=== PATIENT | female | born 1990 | race African-American/Black ===

== ENCOUNTER 2019-03-12 08:18 | Day surgery (SDC) | payer OTHER ==
[2019-03-09 16:50] VITALS: BMI 40.7
[2019-03-12] MEDS ORDERED: MIDAZOLAM HCL 2 MG/2 ML SINGLE DOSE VIAL ONE (09:57)
[2019-03-12] MEDS ORDERED: ONDANSETRON 4 MG/2 ML VIAL IVPUSH PRN (10:05)
[2019-03-12] MEDS ORDERED: PROPOFOL 20 ML ONE (10:09)
[2019-03-12] MEDS ORDERED: LACTATED RINGERS SOLUTION 1,000 ML IV SCH (10:15)
[2019-03-12] MEDS ORDERED: IOHEXOL 300 MG/ML INFUS..BTL IV ONE ×2 (10:24)
[2019-03-12] MEDS ORDERED: ONDANSETRON 4 MG/2 ML VIAL ONE (12:00)
--- NOTE | 2019-03-12 12:57 | OP ---
Operative Note - Note: Operative Date: 03/12/19 Pre-Operative Diagnosis: Right ureteral stricture Operation: cystoscopy/right retrograde pyelogram/right ureteral balloon dilation /right ureteroscopy/right ureteral stent exchange Findings: moderately dense right ureteral stricture Post-Operative Diagnosis: Same as Pre-op Surgeon: Lico Lira Anesthesia: General Specimens Removed: right ureteral stent Drains & Tubes with Location: 8fr/24 cm right ureteral stent
[2019-03-12 15:19] VITALS: BP 105/61; PULSE 70; TEMP 97.9
--- NOTE | 2019-03-12 22:39 | OP ---
DATE OF OPERATION: 03/12/2019 PREOPERATIVE DIAGNOSIS: Right ureteral stricture. POSTOPERATIVE DIAGNOSIS: Right ureteral stricture. PROCEDURE: Cystoscopy, right retrograde pyelogram, right ureteral balloon dilation, right ureteroscopy, right ureteral stent exchange. ATTENDING: Concetta Castillo MD ANESTHESIA: Fractional. DESCRIPTION OF OPERATION: The patient was brought in the operating room, placed in supine position on the operating room table. Patient was given anesthesia and preoperative antibiotics. At this point, the patient was placed in the dorsal lithotomy position and prepped and draped in the usual sterile manner. The patient underwent a cystoscopy which showed no evidence of stones or neoplasm within the bladder. A right ureteral stent was seen and was removed under cystoscopic visualization using grasping forceps. The patient then had a wire placed proximally into the right kidney. This was done under fluoroscopic visualization. At this point, a retrograde pyelogram showed a [id number] distal right ureteral stricture. Balloon dilation was then performed with excellent opening of the strictured area. Once this was accomplished, ureteroscopy was performed, and there was still residual stricture noted. No evidence of neoplasm or stone was noted. A second dilation was performed utilizing the balloon dilator. The balloon was left in place for a period of 5 minutes. With balloon deflated and removed, ureteroscopy was performed, and there was significant improvement in the strictured area. It was decided to leave the patient with an 8-[place] 24-cm stent. This was placed utilizing the Seldinger technique. No complications were noted. Patient tolerated the procedure very well. CONCETTA CASTILLO M.D. [id number]
--- NOTE | 2019-03-13 17:58 | PATH ---
Surgical Pathology Report Patient Name: MARINA ROBERSON Med. Rec. #: [id number] /Age/Gender: 1990 (Age: 29) / F Account: [id number] Location: [facility] Taken: 03/12/2019 Received: 03/12/2019 Reported: 03/13/2019 Physicians: Lico Lira Specimen(s) Received URETERAL STENT Clinical History Right ureteral stricture Final Diagnosis URETERAL STENT, OLD, EXCHANGE: URETERAL STENT. MACROSCOPIC DIAGNOSIS. Electronically Signed Renea Richardson M.D. Gross Description Received fresh "old ureteral stent" is a light blue-hernandez stent consistent with a ureteral stent, coiled in both ends, which measures 30 cm in length and 0.1 cm diameter. No soft tissue present, for gross examination only. MLSZ/03/12/2019 [place]/03/12/2019
== END 2019-03-12 15:34 | disposition home or self-care (01) ==
LOC: JASU-SURG 08:18
PROVIDERS: ATTEND Urology
PROC: 0TP98DZ Removal of Intraluminal Device from Ureter, Via Natural or Artificial Opening Endoscopic (ICD-10-PCS; 2019-03-12)
PROC: BT1DYZZ Fluoroscopy of Right Kidney, Ureter and Bladder using Other Contrast (ICD-10-PCS; 2019-03-12)
PROC: 0T768DZ Dilation of Right Ureter with Intraluminal Device, Via Natural or Artificial Opening Endoscopic (ICD-10-PCS; principal; 2019-03-12 10:00)
DX: N13.5 Crossing vessel and stricture of ureter without hydronephrosis (principal)
CPT/HCPCS: 76000-TC-FY; 84703; 88300-TC; 94760

== ENCOUNTER 2019-05-21 08:54 | Day surgery (SDC) | payer OTHER ==
[2019-05-18 17:14] VITALS: BMI 41.6
[2019-05-21] MEDS ORDERED: PROMETHAZINE HCL 25 MG/1 ML VIAL IVPB PRN (13:40)
[2019-05-21] MEDS ORDERED: oxyCODONE HCL 5 MG TABLET PO PRN (13:40)
[2019-05-21] MEDS ORDERED: ONDANSETRON 4 MG/2 ML VIAL IVPUSH PRN (13:40)
[2019-05-21] MEDS ORDERED: LACTATED RINGERS SOLUTION 1,000 ML IV SCH (13:45)
[2019-05-21] MEDS ORDERED: MIDAZOLAM HCL 2 MG/2 ML SINGLE DOSE VIAL ONE ×2 (13:58)
[2019-05-21] MEDS ORDERED: PROPOFOL 20 ML ONE (14:01)
--- NOTE | 2019-05-21 14:34 | OP ---
Operative Note - Note: Operative Date: 05/21/19 Pre-Operative Diagnosis: recurrent right ureteral stricture Operation: cystoscopy/right retrograde pyelogram/right ureteroscopy/right ureteral stent exchange Findings: distal recurrent right ureteral stricture Post-Operative Diagnosis: Same as Pre-op Surgeon: Lico Lira Anesthesia: General Specimens Removed: right ureteral stent Drains & Tubes with Location: 11/27 right ureteral stent Operative Report Dictated: Yes
[2019-05-21 16:04] VITALS: TEMP 97.4
[2019-05-21] MEDS ORDERED: oxyCODONE HCL 5 MG TABLET ONE (16:08)
[2019-05-21 17:20] VITALS: BP 106/60; PULSE 98
--- NOTE | 2019-05-21 18:50 | OP ---
DATE OF OPERATION: 05/21/2019 PREOPERATIVE DIAGNOSIS: Recurrent urethral stricture. POSTOPERATIVE DIAGNOSIS: Recurrent urethral stricture. PROCEDURE: Cystoscopy, right retrograde pyelogram, right ureteroscopy, and right stent exchange. SURGEON: Concetta Castillo MD ANESTHESIA: General. DESCRIPTION OF PROCEDURE: Patient was brought in the operating room, placed in a supine position on the operating room table. Anesthesia and preoperative antibiotics were administered. The patient was then placed in dorsal lithotomy position and prepped and draped in the usual sterile manner. The patient has a recurrent distal urethral stricture. The stricture occurs at the level of the pelvic vessels. The patient has had multiple balloon dilations with recurrence of the stricture. The patient is here to evaluate the urethral stricture present. Cystoscopy was performed, and the right ureteral stent was noted. Right ureteral stent was removed. At this point, attempts at passing a wire through the stent were unsuccessful. Ureteroscopy was performed and a retrograde pyelogram performed through the ureteroscope. A recurrent urethral stricture was noted. The ureteroscope was utilized, and the stricture was dilated. At this point, the wire was passed proximally. The severity of the stricture was less than had been seen earlier. In addition, the length of the stricture was shorter. There was no evidence of neoplasm of this ureter or stones within the ureter. The patient tolerated the procedure very well. No complications were noted. The patient had a 6-[place] 24-cm stent placed over the wire utilizing Seldinger technique. DISPOSITION: Patient to recovery room. CONCETTA CASTILLO M.D. [id number]
--- NOTE | 2019-05-23 17:31 | PATH ---
Surgical Pathology Report Patient Name: MARINA ROBERSON Med. Rec. #: [id number] /Age/Gender: 1990 (Age: 29) / F Account: [id number] Location: [facility] Taken: 05/21/2019 Received: 05/22/2019 Reported: 05/23/2019 Physicians: Lico Lira Specimen(s) Received URETERAL STENT, RIGHT Clinical History Hydronephrosis with ureteral stricture Final Diagnosis URETERAL STENT, RIGHT, REMOVAL: URETERAL STENT. MACROSCOPIC DIAGNOSIS. Electronically Signed Renea Richardson M.D. Gross Description Received fresh labeled "right ureteral stent," is a 40 cm in length blue-green, coiled portion of tubing, consistent with a ureteral stent. No soft tissue is present. No sections are submitted, gross only. 05/22/2019 saudi05/22/2019
== END 2019-05-21 17:10 | disposition home or self-care (01) ==
LOC: JASU-SURG 08:54
PROVIDERS: ATTEND Urology
PROC: 0T768DZ Dilation of Right Ureter with Intraluminal Device, Via Natural or Artificial Opening Endoscopic (ICD-10-PCS; principal; 2019-05-21 11:00)
PROC: BT0BYZZ Plain Radiography of Bladder and Urethra using Other Contrast (ICD-10-PCS; 2019-05-21 11:00)
DX: N35.82 Other urethral stricture, female (principal)
CPT/HCPCS: 76000-TC-FY; 84703; 88300-TC; 94760

== ENCOUNTER 2020-10-16 10:24 | Observation (INO) | payer OTHER ==
[2020-10-16] MEDS ORDERED: ONDANSETRON 4 MG/2 ML VIAL IVPUSH ONE (10:49)
[2020-10-16] MEDS ORDERED: ACETAMINOPHEN 1000 MG/100 ML BAG IVPB ONE (10:49)
[2020-10-16] MEDS ORDERED: ACETAMINOPHEN INJECTION 100 ML IVPB ONE (10:56)
[2020-10-16] MEDS ORDERED: ONDANSETRON 4 MG/2 ML VIAL ONE (10:56)
[2020-10-16 11:26] LABS: BASO % 0.5 % (0-2.0); EOS % 0.1 % (0-4.5); HEMATOCRIT 34.9 % (32.4-45.2); HEMOGLOBIN 11.8 GM/dL (10.7-15.3); LYMPH % 7.2 % (8-40); MCH 30.8 pg (25.7-33.7); MCHC 33.8 g/dl (32.0-36.0); MEAN CELL VOLUME 91.1 fl (80-96); MEAN PLT VOLUME 10.1 fl (7.5-11.1); MONO % 3.5 % (3.8-10.2); NEUT % 88.7 % (42.8-82.8); PLATELET COUNT 207 K/MM3 (134-434); RBC 3.83 M/mm3 (3.60-5.2); RDW 14.4 % (11.6-15.6); WHITE BLOOD COUNT 14.2 K/mm3 (4.0-10.0)
[2020-10-16 12:04] LABS: CALCIUM 8.6 mg/dL (8.5-10.1)
[2020-10-16 12:05] LABS: ALBUMIN 3.2 g/dl (3.4-5.0); BLOOD UREA NITROGEN 8.8 mg/dL (7-18)
[2020-10-16 12:08] LABS: CREATININE 0.7 mg/dL (0.55-1.3)
[2020-10-16 12:09] LABS: BILIRUBIN,TOTAL 0.3 mg/dL (0.2-1); TOT PROT 6.4 g/dl (6.4-8.2)
[2020-10-16 13:57] LABS: EPI CELLS 24 /uL (0-25.1); HYALINE CASTS 10 /uL (0-3.1); URINE APPEARANCE CLOUDY; URINE BACTERIA >9,000 /uL (0-1359); URINE BILIRUBIN NEGATIVE (NEGATIVE); URINE COLOR YELLOW; URINE GLUCOSE (UA) NEGATIVE (NEGATIVE); URINE KETONE 4+ (NEGATIVE); URINE LEUK ESTERASE NEGATIVE (NEGATIVE); URINE NITRITE NEGATIVE (NEGATIVE); URINE PROTEIN 1+ (NEGATIVE); URINE RBC 239 /uL (0-23.9); URINE UROBILINOGEN 0.2 mg/dL (0.2-1.0)
[2020-10-16] MEDS ORDERED: SODIUM CHLORIDE 0.9% 500 ML INFUS.BAG IV ONE (14:01)
[2020-10-16] MEDS ORDERED: CEFTRIAXONE 1,000 MG in DEXTROSE 5%-WATER - 50 ML IVPB ONE (14:03)
[2020-10-16] MEDS ORDERED: CEFTRIAXONE 1 GM/50 ML BAG ONE (14:07)
[2020-10-16 15:43] LABS: URINE WBC 218.3 /uL (0-25.8)
[2020-10-16] MEDS ORDERED: PHENAZOPYRIDINE HCL 100 MG TABLET (FP) PO ONE (17:15)
[2020-10-16] MEDS: ELECTROLYTE-148 SOLN 1,000 ML IV SCH (19:30)
[2020-10-16] MEDS ORDERED: CITRIC ACID/SODIUM CITRATE 30 ML UNIT-DOSE CUP PO ONE (20:02)
[2020-10-16] MEDS ORDERED: PROMETHAZINE HCL 25 MG/1 ML VIAL IVPUSH PRN (20:02)
[2020-10-16] MEDS ORDERED: ACETAMINOPHEN 1000 MG/100 ML BAG IVPB PRN (20:16)
[2020-10-16] MEDS ORDERED: MEPERIDINE HCL 50 MG/ML VIAL IM PRN (20:17)
[2020-10-16 21:30] VITALS: BMI 41.6
[2020-10-16 22:09] LABS: BASO % 0.5 % (0-2.0); EOS % 0.1 % (0-4.5); HEMATOCRIT 33.2 % (32.4-45.2); HEMOGLOBIN 11.1 GM/dL (10.7-15.3); LYMPH % 9.2 % (8-40); MCH 30.5 pg (25.7-33.7); MCHC 33.4 g/dl (32.0-36.0); MEAN CELL VOLUME 91.4 fl (80-96); MEAN PLT VOLUME 9.9 fl (7.5-11.1); NEUT % 85.2 % (42.8-82.8); PLATELET COUNT 199 K/MM3 (134-434); RBC 3.63 M/mm3 (3.60-5.2); RDW 14.2 % (11.6-15.6)
[2020-10-16 22:14] LABS: INR 0.98 (0.83-1.09); PROTHROMBIN TIME (PATIENT) 11.9 SEC (9.7-13.0)
[2020-10-16 22:17] LABS: ACTIVATED PTT 26.8 SECONDS (25.2-36.5)
[2020-10-16 22:44] LABS: BLOOD UREA NITROGEN 8.1 mg/dL (7-18); CALCIUM 8.4 mg/dL (8.5-10.1)
[2020-10-16 22:48] LABS: CREATININE 0.7 mg/dL (0.55-1.3)
[2020-10-17] MEDS: ELECTROLYTE-148 SOLN 1,000 ML IV SCH (02:28)
[2020-10-17] MEDS ORDERED: cefTRIAXone SODIUM 1 GM VIAL ONE (09:50)
[2020-10-17] MEDS ORDERED: DEXTROSE 5%-WATER - 50 ML IVPB ONE (09:50)
[2020-10-17] MEDS: CEFTRIAXONE 1 GM in DEXTROSE 5%-WATER - 50 ML IVPB SCH (09:52)
[2020-10-18] MEDS ORDERED: cefTRIAXone SODIUM 1 GM VIAL ONE (10:16)
[2020-10-18] MEDS ORDERED: DEXTROSE 5%-WATER - 50 ML IVPB ONE (10:16)
[2020-10-18] MEDS: CEFTRIAXONE 1 GM in DEXTROSE 5%-WATER - 50 ML IVPB SCH (10:17)
[2020-10-18 14:59] VITALS: BP 92/52; PULSE 90; TEMP 98
== END 2020-10-18 14:35 | disposition home or self-care (01) ==
LOC: JER 10:24 → JLDR 19:40 → J3W 22:00
PROVIDERS: ADMIT Obstetrics & Gynecology; ATTEND Obstetrics & Gynecology
PROC: 3E033NZ Introduction of Analgesics, Hypnotics, Sedatives into Peripheral Vein, Percutaneous Approach (ICD-10-PCS; principal; 2020-10-16)
PROC: 3E03329 Introduction of Other Anti-infective into Peripheral Vein, Percutaneous Approach (ICD-10-PCS; 2020-10-16)
PROC: 3E0337Z Introduction of Electrolytic and Water Balance Substance into Peripheral Vein, Percutaneous Approach (ICD-10-PCS; 2020-10-16)
PROC: 3E033GC Introduction of Other Therapeutic Substance into Peripheral Vein, Percutaneous Approach (ICD-10-PCS; 2020-10-16)
DX: O23.00 Infections of kidney in pregnancy, unspecified trimester (principal); N20.0 Calculus of kidney; R11.2 Nausea with vomiting, unspecified; Z3A.20 20 weeks gestation of pregnancy
CPT/HCPCS: 36415; 76775-TC; 80048; 80053; 81003; 85025; 85610; 85730; 86780; 86850; 86900; 86901; 87086; 96361; 96365; 96375; 99285-25; C9803; G0378; J0131; U0003; U0005

== ENCOUNTER 2021-03-06 05:25 | Observation (INO) | payer OTHER ==
[2021-03-06] MEDS: ELECTROLYTE-148 SOLN 1,000 ML IV SCH ×2 (06:45→13:30)
[2021-03-06] MEDS ORDERED: BUTORPHANOL TARTRATE 1 MG/ML VIAL IVPB PRN ×2 (07:10)
[2021-03-06 07:32] LABS: INR 0.9 (0.83-1.09)
[2021-03-06 07:33] LABS: BASO % 0.5 % (0-2.0); EOS % 2.7 % (0-4.5); HEMATOCRIT 34.9 % (32.4-45.2); HEMOGLOBIN 11.9 GM/dL (10.7-15.3); LYMPH % 20.2 % (8-40); MCH 31.3 pg (25.7-33.7); MCHC 34.1 g/dl (32.0-36.0); MEAN CELL VOLUME 91.9 fl (80-96); MEAN PLT VOLUME 10.9 fl (7.5-11.1); MONO % 4.9 % (3.8-10.2); NEUT % 71.7 % (42.8-82.8); PLATELET COUNT 170 10^3/uL (134-434); RDW 13.7 % (11.6-15.6); WHITE BLOOD COUNT 9.9 K/mm3 (4.0-10.0)
[2021-03-06 07:34] LABS: ACTIVATED PTT 27.4 SECONDS (25.2-36.5)
[2021-03-06 07:40] LABS: CALCIUM 8.5 mg/dL (8.5-10.1)
[2021-03-06 07:44] LABS: CREATININE 0.6 mg/dL (0.55-1.3)
[2021-03-06 07:54] VITALS: BMI 44.8
[2021-03-06 14:11] VITALS: BP 119/81; PULSE 91; TEMP 98.7
== END 2021-03-06 14:40 | disposition home or self-care (01) ==
LOC: JDEL 05:25 → JLDR 06:20 → UNDOADMOB 06:20 → INTOOBSV 06:20 → JLDR 14:15
PROVIDERS: ADMIT Obstetrics & Gynecology; ATTEND Obstetrics & Gynecology
PROC: 3E033GC Introduction of Other Therapeutic Substance into Peripheral Vein, Percutaneous Approach (ICD-10-PCS; principal; 2021-03-06)
DX: O48.0 Post-term pregnancy (principal); Z3A.40 40 weeks gestation of pregnancy
CPT/HCPCS: 36415; 59025; 80048; 85025; 85610; 85730; 86780; 86850; 86900; 86901; 96365; C9803; G0378; U0003; U0005

== ENCOUNTER 2021-03-07 02:26 | Inpatient (IN) | payer OTHER ==
[2021-03-07] MEDS ORDERED: ELECTROLYTE-148 SOLN 1,000 ML IV SCH (03:20)
[2021-03-07 03:46] VITALS: BMI 44.8
[2021-03-07] MEDS ORDERED: PCA PUMP NR ONE ×5 (03:51→13:50)
[2021-03-07] MEDS ORDERED: FENTANYL/BUPIVACAINE/NS/PF - PCEA - 50 ML DISP.SYRIN EP ONE ×3 (03:51→12:53)
[2021-03-07] MEDS: FENTANYL/BUPIVACAINE/NS/PF - PCEA - 50 ML DISP.SYRIN EP SCH ×3 (04:30→13:00)
[2021-03-07] MEDS ORDERED: NALOXONE HCL 0.4 MG/ML VIAL IVPUSH PRN (05:08)
[2021-03-07] MEDS: ELECTROLYTE-148 SOLN 1,000 ML IV SCH ×2 (09:09→16:34)
[2021-03-07] MEDS ORDERED: BUPIVACAINE HCL/PF 0.25% (2.5MG/ML) 10 ML VIAL ONE (11:15)
[2021-03-07] MEDS ORDERED: OXYTOCIN 30 UNITS in 0.9% NS 30 UNIT/500 ML INFUS.BAG IVPB SCH (11:15)
[2021-03-07] MEDS ORDERED: OXYTOCIN 30 UNITS in 0.9% NS 30 UNIT/500 ML INFUS.BAG IVPB ONE (12:09)
[2021-03-07] MEDS ORDERED: BENZOCAINE 28 GM HEMORRHOIDAL OINTMENT TP PRN (15:02)
[2021-03-07] MEDS ORDERED: WITCH HAZEL 50% (TUCKS) 40 PAD/JAR PAD TP PRN (15:02)
[2021-03-07] MEDS ORDERED: BISACODYL 10 MG SUPP.RECT RC PRN (15:02)
[2021-03-07] MEDS ORDERED: BENZOCAINE 20% 57 GM BOTTLE TP PRN (15:02)
[2021-03-07] MEDS ORDERED: METHYLERGONOVINE MALEATE 0.2 MG/1 ML AMP IM PRN (15:02)
[2021-03-07] MEDS ORDERED: OXYTOCIN 20 UNITS in 0.9% NS 20 UNIT/1,000 ML INFUS.BAG IV SCH (15:15)
[2021-03-07] MEDS ORDERED: LIDOCAINE HCL/PF 2% SDV 5ML VIAL ONE (17:34)
[2021-03-07] MEDS ORDERED: PROPOFOL 20 ML ONE ×2 (17:34)
[2021-03-07] MEDS ORDERED: LIDOCAINE HCL/EPINEPHRINE/PF 10 ML VIAL ONE (17:35)
[2021-03-07] MEDS ORDERED: morphine SULFATE (PF) 1 MG/2 ML SYRINGE ONE ×2 (17:36)
[2021-03-07] MEDS ORDERED: KETOROLAC TROMETHAMINE 30 MG/1 ML VIAL ONE (18:10)
[2021-03-07] MEDS ORDERED: ceFAZolin SODIUM 1 GM VIAL ONE (18:10)
[2021-03-07] MEDS ORDERED: ONDANSETRON 4 MG/2 ML VIAL ONE (18:10)
[2021-03-07] MEDS ORDERED: AZITHROMYCIN IVPB 500 MG/250 ML BAG IVPB ONE (18:24)
[2021-03-07] MEDS ORDERED: OXYTOCIN 20 UNITS in 0.9% NS 20 UNIT/1,000 ML INFUS.BAG IV ONE (20:32)
[2021-03-07 22:10] LABS: CORD pH 7.264 (7.14-7.44)
[2021-03-07 22:11] LABS: CORD BASE EXCESS -7.7 mmol/L (0-2); CORD HCO3 19.1 mmHg (20-29); CORD PCO2 43.1 mmHg (30-78)
[2021-03-07] MEDS: CEFAZOLIN 1 GM/D5W 1 GM/50 ML BAG IVPB SCH (22:14)
[2021-03-07] MEDS: FERROUS SO4 325 MG TABLET (FP) PO SCH (22:14)
[2021-03-08] MEDS: IBUPROFEN 600 MG TABLET (FP) PO PRN ×3 (00:41→14:30)
[2021-03-08] MEDS: ACETAMINOPHEN 325 MG TABLET (FP) PO PRN (00:41)
[2021-03-08] MEDS ORDERED: ePHEDrine SULFATE 50 MG/1 ML AMPULE ONE ×2 (03:13→03:15)
[2021-03-08] MEDS: CEFAZOLIN 1 GM/D5W 1 GM/50 ML BAG IVPB SCH ×2 (03:16→10:32)
[2021-03-08] MEDS ORDERED: CEFAZOLIN 1 GM/D5W 1 GM/50 ML BAG ONE (03:42)
[2021-03-08] MEDS: FERROUS SO4 325 MG TABLET (FP) PO SCH ×3 (09:04→17:02)
[2021-03-08] MEDS: SIMETHICONE 80 MG TAB.CHEW (FP) PO PRN ×3 (09:05→20:41)
[2021-03-08] MEDS: PRENATAL VITAMINS W/ FOLIC ACID TABLET (FP) PO SCH (09:05)
[2021-03-08 09:47] LABS: HEMATOCRIT 28.6 % (32.4-45.2); HEMOGLOBIN 9.6 GM/dL (10.7-15.3); MCH 30.8 pg (25.7-33.7); MCHC 33.6 g/dl (32.0-36.0); MEAN CELL VOLUME 91.6 fl (80-96); MEAN PLT VOLUME 10.8 fl (7.5-11.1); NEUT % 77.2 % (42.8-82.8); PLATELET COUNT 146 10^3/uL (134-434); RBC 3.12 M/mm3 (3.60-5.2); WHITE BLOOD COUNT 11.8 K/mm3 (4.0-10.0)
[2021-03-08 09:48] LABS: BASO % 0.4 % (0-2.0); EOS % 0.3 % (0-4.5); LYMPH % 16.5 % (8-40); MONO % 5.6 % (3.8-10.2)
[2021-03-08] MEDS ORDERED: ceFAZolin SODIUM 1 GM VIAL ONE (10:11)
[2021-03-08] MEDS ORDERED: DEXTROSE 5%-WATER - 50 ML IVPB ONE (10:11)
[2021-03-08] MEDS ORDERED: CEFAZOLIN 1 GM in DEXTROSE 5%-WATER - 1 GM/50 ML IVPB IVPB SCH (10:15)
[2021-03-08] MEDS ORDERED: oxyCODONE HCL 5 MG TABLET PO PRN (17:30)
[2021-03-08] MEDS: oxyCODONE HCL 5 MG TABLET PO PRN (20:41)
[2021-03-08] MEDS: SENNOSIDES/DOCUSATE COMBO (SENNA PLUS) TABLET (UD) PO PRN (20:41)
[2021-03-09] MEDS: oxyCODONE HCL 5 MG TABLET PO PRN (04:57)
[2021-03-09] MEDS: SIMETHICONE 80 MG TAB.CHEW (FP) PO PRN ×4 (04:58→21:08)
[2021-03-09] MEDS: IBUPROFEN 600 MG TABLET (FP) PO PRN ×3 (08:36→21:08)
[2021-03-09] MEDS: FERROUS SO4 325 MG TABLET (FP) PO SCH ×3 (08:37→17:45)
[2021-03-09] MEDS: PRENATAL VITAMINS W/ FOLIC ACID TABLET (FP) PO SCH (11:33)
[2021-03-09] MEDS: SENNOSIDES/DOCUSATE COMBO (SENNA PLUS) TABLET (UD) PO PRN (21:10)
[2021-03-10 08:02] LABS: BASO % 0.2 % (0-2.0); EOS % 4.2 % (0-4.5); HEMATOCRIT 31.4 % (32.4-45.2); HEMOGLOBIN 10.6 GM/dL (10.7-15.3); MCH 31.1 pg (25.7-33.7); MCHC 33.7 g/dl (32.0-36.0); MEAN CELL VOLUME 92.4 fl (80-96); MEAN PLT VOLUME 9.9 fl (7.5-11.1); NEUT % 79.6 % (42.8-82.8); PLATELET COUNT 198 10^3/uL (134-434); RDW 13.8 % (11.6-15.6); WHITE BLOOD COUNT 13.2 K/mm3 (4.0-10.0)
[2021-03-10] MEDS: IBUPROFEN 600 MG TABLET (FP) PO PRN ×3 (08:05→21:40)
[2021-03-10] MEDS: FERROUS SO4 325 MG TABLET (FP) PO SCH ×3 (08:05→17:37)
[2021-03-10] MEDS: SIMETHICONE 80 MG TAB.CHEW (FP) PO PRN (08:05)
[2021-03-10] MEDS: PRENATAL VITAMINS W/ FOLIC ACID TABLET (FP) PO SCH (11:37)
[2021-03-10] MEDS: ACETAMINOPHEN 325 MG TABLET (FP) PO PRN (11:37)
[2021-03-10] MEDS: SENNOSIDES/DOCUSATE COMBO (SENNA PLUS) TABLET (UD) PO PRN (21:40)
[2021-03-11] MEDS: FERROUS SO4 325 MG TABLET (FP) PO SCH ×2 (09:38→11:49)
[2021-03-11] MEDS: PRENATAL VITAMINS W/ FOLIC ACID TABLET (FP) PO SCH (09:39)
[2021-03-11 10:12] VITALS: BP 115/70; PULSE 76; TEMP 98.3
[2021-03-11] MEDS: ACETAMINOPHEN 325 MG TABLET (FP) PO PRN (11:49)
[2021-03-11] MEDS: IBUPROFEN 600 MG TABLET (FP) PO PRN (11:49)
== END 2021-03-11 12:50 | disposition home or self-care (01) | DRG 788 ==
LOC: JDEL 02:26 → JLDR 03:05 → J3W 21:19
PROVIDERS: ADMIT Obstetrics & Gynecology; ATTEND Obstetrics & Gynecology
PROC: 10D00Z1 Extraction of Products of Conception, Low, Open Approach (ICD-10-PCS; principal; 2021-03-07)
DX: O48.0 Post-term pregnancy (principal); Z3A.40 40 weeks gestation of pregnancy; O99.214 Obesity complicating childbirth; E66.9 Obesity, unspecified; O99.02 Anemia complicating childbirth; D64.9 Anemia, unspecified; O61.9 Failed induction of labor, unspecified; Z37.0 Single live birth
CPT/HCPCS: 36415; 36600; 82803; 85025; 88307-TC

== ENCOUNTER 2022-06-14 04:24 | Day surgery (SDC) | payer OTHER ==
[2022-06-09 14:18] VITALS: BMI 41.6
[2022-06-14] MEDS ORDERED: MIDAZOLAM HCL 2 MG/2 ML SINGLE DOSE VIAL ONE (16:00)
[2022-06-14 17:16] VITALS: RESP 18
[2022-06-14 17:25] VITALS: BP 105/69; PULSE 89; TEMP 98
== END 2022-06-14 17:15 | disposition home or self-care (01) ==
LOC: JASU-SURG 04:24
PROVIDERS: ATTEND Urology
PROC: 0TF3XZZ Fragmentation in Right Kidney Pelvis, External Approach (ICD-10-PCS; principal; 2022-06-14 14:30)
DX: N20.0 Calculus of kidney (principal)
CPT/HCPCS: 81025

== ENCOUNTER 2023-07-11 04:07 | Day surgery (SDC) | payer OTHER ==
[2023-07-06 13:28] VITALS: BMI 41.6
[2023-07-11] MEDS ORDERED: MIDAZOLAM HCL 2 MG/2 ML SINGLE DOSE VIAL ONE (13:39)
[2023-07-11] MEDS: ONDANSETRON 4 MG/2 ML VIAL IVPB PRN (14:19)
[2023-07-11 16:30] VITALS: BP 99/61; PULSE 62; RESP 19; TEMP 97.7
== END 2023-07-11 16:49 | disposition home or self-care (01) ==
LOC: JASU-SURG 04:07
PROVIDERS: ATTEND Urology
PROC: 0TF4XZZ Fragmentation in Left Kidney Pelvis, External Approach (ICD-10-PCS; principal; 2023-07-11 11:30)
DX: N20.0 Calculus of kidney (principal)
CPT/HCPCS: 81025

== ENCOUNTER 2023-08-08 04:25 | Day surgery (SDC) | payer OTHER ==
[2023-08-03 13:07] VITALS: BMI 41.6
[2023-08-08] MEDS ORDERED: MIDAZOLAM HCL 2 MG/2 ML SINGLE DOSE VIAL ONE (15:11)
[2023-08-08] MEDS ORDERED: ONDANSETRON 4 MG/2 ML VIAL ONE (15:31)
[2023-08-08] MEDS ORDERED: PROPOFOL 20 ML ONE (15:42)
[2023-08-08] MEDS ORDERED: KETOROLAC TROMETHAMINE 30 MG/1 ML VIAL ONE (15:42)
[2023-08-08 16:17] VITALS: RESP 18
[2023-08-08] MEDS ORDERED: ONDANSETRON *ODT* 4 MG TABLET SL ONE (18:00)
[2023-08-08] MEDS ORDERED: ONDANSETRON *ODT* 4 MG TABLET ONE (18:02)
[2023-08-08] MEDS: ONDANSETRON 4 MG TABLET PO ONE (18:04)
[2023-08-08 18:33] VITALS: BP 108/76; PULSE 69; TEMP 98
== END 2023-08-08 18:30 | disposition home or self-care (01) ==
LOC: JASU-SURG 04:25
PROVIDERS: ATTEND Urology
PROC: 0TF3XZZ Fragmentation in Right Kidney Pelvis, External Approach (ICD-10-PCS; principal; 2023-08-08 14:00)
DX: N20.0 Calculus of kidney (principal)
CPT/HCPCS: 81025; Q0162

== ENCOUNTER 2024-10-07 15:00 | Emergency (ER) | payer OTHER ==
[2024-10-07 15:07] VITALS: RESP 18; BMI 43.4
[2024-10-07 17:00] LABS: ABSOLUTE IMMATURE GRANULOCYTES 0.03 x10^3/uL (0.0-0.031); BASOPHILS # 0.01 x10^3/uL (0.01-0.08); EOSINOPHIL % 1.5 % (0.7-5.8); EOSINOPHILS # 0.14 x10^3/uL (0.04-0.36); HEMATOCRIT 35.8 % (34.1-44.9); HEMOGLOBIN 11.5 g/dL (11.2-15.7); MCHC 32.1 g/dl (32.2-35.5); MEAN CELL VOLUME 90.4 fl (79.4-94.8); MEAN PLT VOLUME 10.9 fl (9.4-12.3); MONOCYTE # 0.42 x10^3/uL (0.24-0.86); MONOCYTE % 4.6 % (4.7-12.5); PLATELET COUNT 230 x10^3/uL (182-369); RDW 14.2 % (12.1-16.8)
[2024-10-07 17:22] LABS: POTASSIUM 4.4 mmol/L (3.5-5.1)
[2024-10-07 17:24] LABS: ALBUMIN 2.8 g/dl (3.4-5.0); BLOOD UREA NITROGEN 6.6 mg/dL (7-18); CALCIUM 9.4 mg/dL (8.5-10.1)
[2024-10-07 17:27] LABS: CREATININE 0.4 mg/dL (0.55-1.3)
[2024-10-07 17:29] LABS: BILIRUBIN,TOTAL 0.3 mg/dL (0.2-1); TOT PROT 6.5 g/dl (6.4-8.2)
[2024-10-07 18:19] LABS: HCV DIAGNOSTIC IN-HOUSE W/RFLX NON-REACTIVE (NONREACTIVE); HIV INTERPRETATION NEGATIVE (NEGATIVE)
[2024-10-07 18:52] VITALS: BP 119/70; PULSE 100; TEMP 98
== END 2024-10-07 19:10 | disposition home or self-care (01) ==
LOC: JERFT 15:00
DX: O26.892 Other specified pregnancy related conditions, second trimester (principal); R06.02 Shortness of breath; O99.891 Other specified diseases and conditions complicating pregnancy; R00.2 Palpitations; R05.9 Cough, unspecified; R09.81 Nasal congestion; Z3A.20 20 weeks gestation of pregnancy
CPT/HCPCS: 0241U-QW; 36415; 80053; 83735; 84439; 84443; 85025; 86803; 87389; 93005; 93010; 99284-25

== ENCOUNTER 2025-01-18 15:50 | Emergency (ER) | payer OTHER ==
[2025-01-18 16:20] VITALS: BMI 50.0
[2025-01-18 17:21] LABS: ABSOLUTE IMMATURE GRANULOCYTES 0.06 x10^3/uL (0.0-0.031); BASOPHILS # 0.02 x10^3/uL (0.01-0.08); EOSINOPHIL % 2.8 % (0.7-5.8); EOSINOPHILS # 0.36 x10^3/uL (0.04-0.36); MCHC 31.8 g/dl (32.2-35.5); MEAN CELL VOLUME 92.2 fl (79.4-94.8); MEAN PLT VOLUME 11.7 fl (9.4-12.3); MONOCYTE # 0.70 x10^3/uL (0.24-0.86); MONOCYTE % 5.4 % (4.7-12.5); RDW 14.1 % (12.1-16.8)
[2025-01-18 17:23] LABS: EPI CELLS 28 /uL (0-25.1); HYALINE CASTS 7 /uL (0-3.1); URINE APPEARANCE CLOUDY; URINE BACTERIA 7438 /uL (0-1359); URINE BILIRUBIN NEGATIVE (NEGATIVE); URINE COLOR YELLOW; URINE GLUCOSE (UA) NEGATIVE (NEGATIVE); URINE KETONE 1+ (NEGATIVE); URINE LEUK ESTERASE 2+ (NEGATIVE); URINE NITRITE NEGATIVE (NEGATIVE); URINE PROTEIN 2+ (NEGATIVE); URINE RBC 72 /uL (0-23.9); URINE UROBILINOGEN 1.0 mg/dL (0.2-1.0); URINE WBC 344 /uL (0-25.8)
[2025-01-18] MEDS: SODIUM CHLORIDE 1,000 ML IV STA (17:23)
[2025-01-18 17:43] LABS: GLUCOSE,RANDOM 91.0 mg/dL (74-106)
[2025-01-18 17:44] LABS: TOT PROT 6.4 g/dl (6.4-8.2)
[2025-01-18 17:45] LABS: CO2 19.0 mmol/L (21-32)
[2025-01-18 17:46] LABS: ALK PHOS 89.0 U/L (40-150)
[2025-01-18 17:49] LABS: CREATININE 0.49 mg/dL (0.55-1.3); SGOT/AST 13.0 U/L (5-34); SGPT/ALT 8.0 U/L (0-55)
[2025-01-18] MEDS ORDERED: CEFTRIAXONE 1 GM/50 ML BAG ONE (18:06)
[2025-01-18 20:39] VITALS: BP 116/71; PULSE 91; RESP 17; TEMP 98.1
== END 2025-01-18 22:15 | disposition home or self-care (01) ==
LOC: JER 15:50
PROC: 3E03329 Introduction of Other Anti-infective into Peripheral Vein, Percutaneous Approach (ICD-10-PCS; principal; 2025-01-18)
PROC: 3E0337Z Introduction of Electrolytic and Water Balance Substance into Peripheral Vein, Percutaneous Approach (ICD-10-PCS; 2025-01-18)
DX: O23.43 Unspecified infection of urinary tract in pregnancy, third trimester (principal); O99.891 Other specified diseases and conditions complicating pregnancy; R55 Syncope and collapse; R00.0 Tachycardia, unspecified; R42 Dizziness and giddiness; R06.02 Shortness of breath; O26.893 Other specified pregnancy related conditions, third trimester; R11.0 Nausea; Z3A.35 35 weeks gestation of pregnancy
CPT/HCPCS: 36415; 76819-TC; 80053; 81003; 85025; 87086; 93005; 93010; 99285-25